=== PATIENT | male | born 1975 ===

== ENCOUNTER 2016-10-07 13:59 | Emergency (ER) | payer OTHER ==
--- NOTE | 2016-10-07 14:28 | UC ---
Eye Complaint HPI - HPI Summary HPI Summary: For a little over a week pt has had bilat eye redness with marked puffiness of upper lids. Denies fever, foul eye drainage, itching, nasal congestion, sneezing , or photophobia. Pt works parts classifier as a cook, called into work last week because of sx. - History of Current Complaint Chief Complaint: UCEye Stated Complaint: EYE ISSUE Time Seen by Provider: 10/07/16 14:08 Hx Obtained From: Patient Onset/Duration: Gradual Onset, Lasting Days Timing: Constant Severity Initially: Mild Severity Currently: Mild Location of Injury: Eye Lid (upper) Character: Dull Aggravating Factor(s): Nothing Alleviating Factor(s): Nothing Associated Signs And Symptoms: Positive: Drainage (Clear) - extra tears, Swelling. Negative: Drainage (Purulent), Vision Impairment Bilateral - Allergies/Home Medications Allergies/Adverse Reactions: Allergies Allergy/AdvReac Type Severity Reaction Status Date / Time No Known Allergies Allergy Verified 10/07/16 14:10 Home Medications: Home Medications NK [No Home Medications Reported] 10/07/16 [History Confirmed 10/07/16] PMH/Surg Hx/FS Hx/Imm Hx Previously Healthy: Yes - Surgical History Surgical History: None - Family History Known Family History: Negative: Hypertension - Social History Occupation: Employed Part-time Alcohol Use: Weekly Substance Use Type: Marijuana Substance Use Comment - Amount & Last Used: occ usage Smoking Status (MU): Current Every Day Smoker Type: Cigars Amount Used/How Often: 1 per day Review of Systems Constitutional: Negative Skin: Negative Eyes: Eye Redness ENT: Negative Respiratory: Negative Cardiovascular: Negative Gastrointestinal: Negative Genitourinary: Negative Motor: Negative Neurovascular: Negative Musculoskeletal: Negative Neurological: Negative Psychological: Negative All Other Systems Reviewed And Are Negative: Yes Physical Exam Triage Information Reviewed: Yes Appearance: Well-Appearing, No Pain Distress, Obese Vital Signs: Initial Vital Signs Temp 97.8 F 10/07/16 14:04 Pulse 92 10/07/16 14:04 Resp 16 10/07/16 14:04 BP 159/91 10/07/16 14:04 Pulse Ox 100 10/07/16 14:04 Vital Signs Reviewed: Yes Eye Exam: Other - PERRL, EOMI Eyes: Positive: Conjunctiva Inflamed - bilat, mild, Other: - bilat upper lid marked swelling ENT Exam: Normal ENT: Positive: Normal ENT inspection, Hearing grossly normal, Pharynx normal, TMs normal. Negative: Tonsillar swelling, Tonsillar exudate Dental Exam: Normal Neck exam: Normal Neck: Positive: Supple, Nontender, No Lymphadenopathy Respiratory Exam: Normal Respiratory: Positive: Chest non-tender, Lungs clear, Normal breath sounds, No respiratory distress, No accessory muscle use Cardiovascular Exam: Normal Cardiovascular: Positive: RRR, No Murmur Abdomen Description: Positive: Soft. Negative: CVA Tenderness (R) Musculoskeletal Exam: Normal Neurological Exam: Normal Neurological: Positive: Alert Psychological Exam: Normal Skin Exam: Normal Eye Complaint Course/Dx - Differential Dx/Diagnosis Provider Diagnoses: biat conjunctivitis, likely viral Discharge - Discharge Plan Condition: Stable Disposition: HOME Patient Education Materials: Conjunctivitis (ED) Forms: *Work Release Additional Instructions: As we discussed, your symptoms are strongly suggestive of viral conjunctivitis. There is no particular treatment for this, as it needs to pass on its own. Please call or return if your symptoms have not started to improve within a week or so. The swelling in your eyelids is due to the infection in your eyes. This should come down within a few days as well. If you want to try some drops, use over-the -counter allergy drops. Generic should work fine, but you can look for Zaditor or Naphcon-A.
== END 2016-10-07 14:47 | disposition home or self-care (01) ==
LOC: UCEAST 13:59
DX: H10.9 Unspecified conjunctivitis (principal); F17.290 Nicotine dependence, other tobacco product, uncomplicated
CPT/HCPCS: 81003; 99201; G0463